=== PATIENT | male | born 2000 | race Caucasian/White ===

== ENCOUNTER 2019-08-06 05:44 | Emergency (ER) | payer OTHER, SELFPAY ==
[2019-08-06 05:50] VITALS: BP 175/111; PULSE 92; RESP 16; TEMP 36.7; O2SAT 100; BMI 36.2
--- NOTE | 2019-08-06 06:11 | USR_ITS ---
PROCEDURE INFORMATION: Exam: US Duplex Left Lower Extremity Veins, Limited Exam date and time: 08/06/2019 6:13 AM Age: 19 years old Clinical indication: Pain; Leg, lower; Left; Additional info: Lle pain swelling TECHNIQUE: Imaging protocol: Real-time Duplex ultrasound of the Left Lower Extremity with 2-D quiros scale, color Doppler flow and spectral waveform analysis with image documentation. Limited exam focused on the left lower extremity veins. COMPARISON: No relevant prior studies available. FINDINGS: Left deep veins: Unremarkable. The common femoral, femoral, proximal profunda femoral and popliteal veins are patent without thrombus. Normal Doppler waveforms. Normal compressibility and/or augmentation response. Left superficial veins: Unremarkable. Saphenofemoral junction is patent without thrombus. Soft tissues: Superficial varices. Lymph node left inguinal soft tissues. US/[id number] IMPRESSION: No acute findings. No evidence of deep vein thrombosis. Superficial venous varices arising from the area of saphenous vein medially at the knee level which may correspond to subjective area of symptoms.
--- NOTE | 2019-08-06 06:45 | W.ED.EXTPRO ---
HPI - Extremity Problem General: Chief complaint: Extremity Injury, Lower Stated complaint: POSS BLOOD CLOT Time Seen by Provider: 08/06/19 06:27 History of Present Illness: HPI Narrative: 19-year-old male presents emergency room complaining of left medial leg pain. He states he was at work and he felt like the medial aspect over the left leg at the level of the knee was hurting and even on fire. He states he had been on his feet for several hours it felt hot and then when he palpated he thought it was very hard is concerned about the possibility of a DVT. He is not had any chest pain is not had any shortness of breath. He is not previously had any DVTs or PEs in the past. MD Complaint: extremity pain Onset (ago): hour(s) (12) Pain Consistency: intermittent Location: left Quality: aching Radiation: none Relieving factors: nothing Associated symptoms: Deny chest pain, fever(s), rash or short of breath Review of Systems Const: Denies: fever ENMT: Denies: throat pain, ear pain, nasal discharge or nasal congestion Card: Denies: chest pain Resp: Denies: shortness of breath, productive cough or non-productive cough GI: Denies: abdominal pain, nausea, vomiting, vomiting blood, coffee grounds in vomit, diarrhea, constipation, bloating, blood in stool or black tarry stool : Denies: flank pain, painful urination, urinary frequency or urinary urgency Skin/Breast: Denies: rash [facility] ED PFSH: Medical History (Updated 08/06/19 @ 07:40 by Danny Rose DO) Hypertension Surgical History (Updated 08/06/19 @ 06:47 by Danny Rose DO) History of appendectomy Social History Smoking and tobacco status: never smoked Physical Exam Const: COMMON NORMALS: no apparent distress GENERAL APPEARANCE: cooperative and comfortable ORIENTATION/CONSCIOUSNESS: Yes awake, Yes oriented to person, Yes oriented to place and Yes oriented to time HENMT: COMMON NORMALS: normocephalic, head/scalp atraumatic and hearing grossly normal bilaterally HEAD & SCALP: normocephalic and atraumatic Eye: COMMON NORMALS: PERRL, EOMs intact bilaterally, conjunctivae normal and no scleral icterus CONJUNCTIVA: Yes conjunctivae normal PUPIL: Yes PERRL Neck/C-Spine: COMMON NORMALS: full ROM, no lymphadenopathy, supple and no JVD Lymph: LYMPHATIC: no lymphadenopathy noted and no lymphedema noted Resp: COMMON NORMALS: normal respiratory effort, no retractions, no use of accessory muscles and clear to auscultation bilaterally AUSCULTATION: clear to auscultation bilaterally Cardio: COMMON NORMALS: no JVD, regular rate, regular rhythm and no murmurs RATE: regular rate RHYTHM: regular rhythm GI: COMMON NORMALS: soft to palpation and no hepatosplenomegaly AUSCULTATION: Yes normoactive bowel sounds PALPATION: Yes soft, No tender, No guarding and Yes no hepatosplenomegaly Extremity: COMMON NORMALS: normal to inspection, normal capillary refill, no clubbing, cyanosis or edema, no calf tenderness and no pedal edema Neuro: SENSORIUM/ORIENTATION: Yes oriented to person, Yes oriented to place and Yes oriented to time Skin: COMMON NORMALS: no rashes or lesions noted GENERAL SKIN EXAM: no rashes or lesions noted Course Vital Signs: Vital signs: Vital Signs Temperature 98.0 F 08/06/19 05:50 Pulse Rate 78 08/06/19 07:46 Respiratory Rate 7 L 08/06/19 07:46 Blood Pressure 152/101 08/06/19 07:46 Pulse Oximetry 97 08/06/19 07:46 MDM - Extremity (Nontraumatic) MDM Narrative: Medical decision making narrative: Venous duplex negative other than showing some varices of the greater saphenous vein patient had mentioned he had been at work for an overnight shift as it started at 6:30 PM last night suspect a lot of this is varicose veins and the discomfort associated with some there is no evidence of DVT. No further treatment is needed. He can follow-up with his primary care doctor. If they persist they could look at doing a vein stripping or sclerosis of the affected veins if it was evaluated and felt appropriate. Discharge Plan Discharge Patient Disposition: Home, Self-Care Clinical Impression: Varicose vein of leg Condition: Stable Discharge Orders: Discharge Order (Routine); Ordered 08/06/19 Ordered By: Danny Rose Referrals: Mitchell Virgen MD [Family Provider] - Discharge Diet: Usual diet Discharge Activity: Resume usual activity Patient Instructions: Varicose Veins (ED) Activity Restrictions/Additional Instructions: Follow-up with your primary care doctor. 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
[2019-08-06 07:18] VITALS: RESP 17; O2SAT 99
[2019-08-06 07:46] VITALS: BP 152/101; PULSE 78; RESP 7; O2SAT 97
== END 2019-08-06 07:47 | disposition home or self-care (01) ==
PROVIDERS: Emergency Provider Family Medicine; Family Provider Family Medicine
DX: I83.92 Asymptomatic varicose veins of left lower extremity (principal); I10 Essential (primary) hypertension
CPT/HCPCS: 12345; 93971; 99281; 99282